=== PATIENT | male | born 1945 | race American Indian/Alaskan Native ===

== ENCOUNTER 2017-08-31 16:06 | Emergency (ER) | payer MEDICARE ==
[2017-08-31 16:18] VITALS: O2SAT 96
[2017-08-31] MEDS ORDERED: Bacitracin 500 Units/gm Oint Foilpak UD TOP ONE (16:53)
[2017-08-31] MEDS ORDERED: Bacitracin 500 Units/gm Oint Foilpak UD ONE (17:01)
--- NOTE | 2017-08-31 17:19 | C.PDOC ---
History Of Present Illness 71 year old male presents to ED after accidental trip and fall outside his home today. He reports falling forward landing on his face and body. He complains of pain to nose, bilateral palms bilateral knees. He reports having nosebleed which resolved with pressure. He denies any dizziness prior or after fall. Denies any LOC, vision changes, nausea, vomiting, numbness, or weakness. Patient is visiting from [place]. - HPI Time Seen by Provider: 08/31/17 16:39 Chief Complaint (Nursing): Trauma History Per: Patient History/Exam Limitations: no limitations Onset/Duration Of Symptoms: Sudden Onset Severity: Mild - Fall Fall:Prior To Injury: Tripped Past Medical History Reviewed: Historical Data, Nursing Documentation, Vital Signs Vital Signs: Last Vital Signs Temp 98.3 F 08/31/17 18:06 Pulse 63 08/31/17 18:06 Resp 18 08/31/17 18:06 BP 181/79 H 08/31/17 18:06 Pulse Ox 96 08/31/17 18:06 - Medical History PMH: CAD, HTN, Chronic Kidney Disease Surgical History: CABG (x3) Family History: States: Unknown Family Hx - Social History Hx Alcohol Use: No Hx Substance Use: No Review Of Systems Except As Marked, All Systems Reviewed And Found Negative. ENT: Positive for: Nose Pain Cardiovascular: Negative for: Chest Pain, Palpitations Respiratory: Negative for: Shortness of Breath Gastrointestinal: Negative for: Nausea, Vomiting Musculoskeletal: Negative for: Arm Pain, Back Pain Skin: Positive for: Other (abrasions) Neurological: Negative for: Weakness, Numbness, Confusion, Headache, Dizziness Physical Exam - Physical Exam Appears: Non-toxic, No Acute Distress Skin: Warm, Dry, Other (superficial abrasions to bridge of nose, bilateral palms , bilateral knees) Head: Atraumatic, Normacephalic, No Tenderness, No Swelling, No Abrasion Eye(s): bilateral: Normal Inspection, PERRL, EOMI, Other (no nystagmus) Nose: No Deformity, Tenderness (bridge of nose with mild swelling), No Septal Hematoma, Other (superificial abrasion to bridge of nose) Oral Mucosa: Moist Teeth: Normal Dentition, No Loose, No Avulsed Throat: Normal Neck: Normal ROM Chest: Symmetrical, No Tenderness Cardiovascular: Rhythm Regular Respiratory: Normal Breath Sounds, No Wheezing Back: Normal Inspection, Vertebral Tenderness, No Decreased ROM, No Paraspinal Tenderness Extremity: Normal ROM, No Tenderness, Capillary Refill (< 2 seconds), No Deformity, No Swelling Pulses: Left Radial: Normal Neurological/Psych: Oriented x3, Normal Speech, Normal Cranial Nerves, Normal Motor, Normal Sensation Gait: Steady ED Course And Treatment O2 Sat by Pulse Oximetry: 96 - CT Scan/US head Other Rad Studies (CT/US): Read By Radiologist, Radiology Report Reviewed CT/US Interpretation: Patient Name / ID : HOMER Kimball / [id number]. Exam Date : 08/31/2017 17:13:55 ( Approved ). Study Comment : Sex / Age : M / 71Y. Creator : Elias Jalloh MD. Dictator : Elias Jalloh MD. Chemical Laboratory Chief : Housekeeper Caregiver : Elias Jalloh MD. Approver2 : Report Date : 17:25:04. My Comment : . PROCEDURE: CT HEAD WITHOUT CONTRAST. HISTORY: s.p trip and fall injury to face and nose. COMPARISON: None available. TECHNIQUE: Axial computed tomography images were obtained through the head/brain without intravenous contrast. Radiation dose: Total exam DLP = 822.31 mGy-cm. This CT exam was performed using one or more of the following dose reduction techniques: Automated exposure control, adjustment of the mA and/ or kV according to patient size, and/or use of iterative reconstruction technique. FINDINGS: HEMORRHAGE: No intracranial hemorrhage. BRAIN: No mass effect or edema. No atrophy or chronic microvascular ischemic changes. VENTRICLES: Unremarkable. No hydrocephalus. CALVARIUM: Unremarkable. PARANASAL SINUSES: Unremarkable as visualized. No significant inflammatory changes. MASTOID AIR CELLS: Unremarkable as visualized. No inflammatory changes. OTHER FINDINGS: None. IMPRESSION: No acute intracranial abnormalities. No significant findings to account for the clinical presentation. maxillofacial Other Rad Studies (CT/US): Read By Radiologist, Radiology Report Reviewed CT/US Interpretation: Patient Name / ID : HOMER Kimball / [id number]. Exam Date : 08/31/2017 17:16:21 ( Approved ). Study Comment : Sex / Age : M / 71Y. Creator : Elias Jalloh MD. Dictator : Elias Jalloh MD. Chemical Laboratory Chief : Housekeeper Caregiver : Elias Jalloh MD. Approver2 : Report Date : 17:33:10. My Comment : . PROCEDURE: CT MAXILLOFACIAL BONES WITHOUT CONTRAST. HISTORY: s.p trip and fall , injury to nose. COMPARISON: None. TECHNIQUE: Contiguous axial CT images of the maxillofacial bones were obtained. Coronal and sagittal reformats were generated. Radiation dose: Total exam DLP = 719.17 mGy-cm. This CT exam was performed using one or more of the following dose reduction techniques: Automated exposure control, adjustment of the mA and/or kV according to patient size, and/or use of iterative reconstruction technique. FINDINGS: NASAL BONES: Unremarkable. ORBITS: Unremarkable. PARANASAL SINUSES/ MASTOIDS: Trace maxillary sinusitis , chronic. No evidence of acute sinusitis. MAXILLA: Unremarkable. MANDIBLE/ TEMPOROMANDIBULAR JOINTS: Unremarkable. SKULL BASE: Unremarkable. TEMPORAL BONES: Middle ears and mastoid grossly unremarkable. OTHER FINDINGS: Facial soft tissue swelling about the nose without evidence of displaced nasal bone fractures. No abnormalities bony nasal septum, hard palate region. IMPRESSION: Soft tissue swelling confined to the bridge of the nose. No osseous abnormalities. Specifically no evidence of facial/ nasal bone fracture Medical Decision Making Medical Decision Making: Patient with trip and fall today. Exam showed superficial abrasions. CT scan head and maxillofacial was ordered, showing no intracranial bleed or nose fracture. Patient is on warfarin and Aspirin. He fell injuring extremities and his nose. I discussed case with attending Dr Clifford, who agrees patient is stable for discharge. I explained results to patient and provide copy of CT reports. He states he is from [place] and does not want observation. I advised patient for signs of concerning symptoms and to follow up. Disposition Counseled Patient/Family Regarding: Studies Performed, Diagnosis, Need For Followup - Disposition Referrals: [facility] [Outside] Disposition: HOME/ ROUTINE Disposition Time: 17:51 Condition: STABLE Additional Instructions: Your CT was normal, no fractures or other abnormality Keep your wounds clean and dry. May wash gently with soap and water, do not use alcohol or iodine solution. Change dressing 1-2 times daily. You can take Tylenol for any pain you may have It is important to follow up with your doctor for further evaluation in 1-5 days. Advise return to the ER if any alteration in behavior or mental status, severe headache, nausea, persistent vomiting, or loss of consciousness occurs. Instructions: Contusion in Adults (ED), Abrasion (ED) Forms: [facility] ([place]) - POA Present On Arrival: Falls Or Trauma - Clinical Impression Clinical Impression: Contusion of nose, Abrasions of multiple sites, Accidental fall
--- NOTE | 2017-08-31 17:26 | CT ---
PROCEDURE: CT HEAD WITHOUT CONTRAST. HISTORY: s.p trip and fall injury to face and nose COMPARISON: None available. TECHNIQUE: Axial computed tomography images were obtained through the head/brain without intravenous contrast. Radiation dose: Total exam DLP = 822.31 mGy-cm. This CT exam was performed using one or more of the following dose reduction techniques: Automated exposure control, adjustment of the mA and/or kV according to patient size, and/or use of iterative reconstruction technique. FINDINGS: HEMORRHAGE: No intracranial hemorrhage. BRAIN: No mass effect or edema. No atrophy or chronic microvascular ischemic changes. VENTRICLES: Unremarkable. No hydrocephalus. CALVARIUM: Unremarkable. PARANASAL SINUSES: Unremarkable as visualized. No significant inflammatory changes. MASTOID AIR CELLS: Unremarkable as visualized. No inflammatory changes. OTHER FINDINGS: None. IMPRESSION: No acute intracranial abnormalities. No significant findings to account for the clinical presentation.
--- NOTE | 2017-08-31 17:35 | CT ---
PROCEDURE: CT MAXILLOFACIAL BONES WITHOUT CONTRAST HISTORY: s.p trip and fall , injury to nose COMPARISON: None TECHNIQUE: Contiguous axial CT images of the maxillofacial bones were obtained. Coronal and sagittal reformats were generated. Radiation dose: Total exam DLP = 719.17 mGy-cm. This CT exam was performed using one or more of the following dose reduction techniques: Automated exposure control, adjustment of the mA and/or kV according to patient size, and/or use of iterative reconstruction technique. FINDINGS: NASAL BONES: Unremarkable. ORBITS: Unremarkable. PARANASAL SINUSES/ MASTOIDS: Trace maxillary sinusitis, chronic. No evidence of acute sinusitis. MAXILLA: Unremarkable. MANDIBLE/ TEMPOROMANDIBULAR JOINTS: Unremarkable. SKULL BASE: Unremarkable. TEMPORAL BONES: Middle ears and mastoid grossly unremarkable. OTHER FINDINGS: Facial soft tissue swelling about the nose without evidence of displaced nasal bone fractures. No abnormalities bony nasal septum, hard palate region. IMPRESSION: Soft tissue swelling confined to the bridge of the nose. No osseous abnormalities. Specifically no evidence of facial/ nasal bone fracture
[2017-08-31 18:12] VITALS: BP 181/79; PULSE 63; RESP 18; TEMP 98.3
== END 2017-08-31 18:13 | disposition home or self-care (01) ==
LOC: C.ER 16:06
DX: S00.33XA Contusion of nose, initial encounter (principal); S00.31XA Abrasion of nose, initial encounter; S60.512A Abrasion of left hand, initial encounter; S60.511A Abrasion of right hand, initial encounter; S80.212A Abrasion, left knee, initial encounter; S80.211A Abrasion, right knee, initial encounter; W01.0XXA Fall on same level from slipping, tripping and stumbling without subsequent striking against object, initial encounter; I25.10 Atherosclerotic heart disease of native coronary artery without angina pectoris; I12.9 Hypertensive chronic kidney disease with stage 1 through stage 4 chronic kidney disease, or unspecified chronic kidney disease; N18.9 Chronic kidney disease, unspecified